=== PATIENT | male | born 1980 | race Caucasian/White ===

== ENCOUNTER 2021-12-14 17:19 | Emergency (ER) | payer OTHER, BC ==
[~2021-12-14] VITALS: Ht 177.8 cm; Wt 93.0 kg
[~2021-12-14 17:19] MED LIST: HYDR-3965 PO
[2021-12-14 17:39] VITALS: BP 136/92
== END 2021-12-14 18:11 | disposition home or self-care (01) ==
LOC: ER 17:20
DX: Z00.00 Encounter for general adult medical examination without abnormal findings (principal); G43.909 Migraine, unspecified, not intractable, without status migrainosus; G89.29 Other chronic pain; Z79.899 Other long term (current) drug therapy; Z87.81 Personal history of (healed) traumatic fracture
CPT/HCPCS: 99281; 99283

== ENCOUNTER 2024-08-07 18:42 | Emergency (ER) | payer BC, OTHER ==
[~2024-08-07] VITALS: Ht 177.8 cm; Wt 95.9 kg
[2024-08-07] MEDS: dexamethasone sod phosphate 10mg/ml inj IM STA (19:41)
[2024-08-07] MEDS ORDERED: NAPR-1144 PO (19:47)
[2024-08-07] MEDS ORDERED: PRED20TA PO (19:47)
[2024-08-07 19:58] VITALS: BP 152/103; PULSE 106; RESP 14; TEMP 98.5; O2SAT 100
== END 2024-08-07 20:10 | disposition home or self-care (01) ==
LOC: ER 18:43
DX: G56.22 Lesion of ulnar nerve, left upper limb (principal); G89.29 Other chronic pain; M54.9 Dorsalgia, unspecified; G43.909 Migraine, unspecified, not intractable, without status migrainosus; F31.9 Bipolar disorder, unspecified
CPT/HCPCS: 96372; 99283; J1100